=== PATIENT | female | born 1965 | race Caucasian/White ===

== ENCOUNTER 2018-10-31 16:55 | Outpatient (CLI) | payer OTHER ==
--- NOTE | 2018-11-04 15:41 | Mammography Report ---
Reason: SCREENING FOR NAYA SAUCEDOP,BREAST Procedure Date: 10/31/2018 Accession Number: [id number] / [id number] Procedure: SADIE - Screening Mammo w/Blaise CPT Code: FULL RESULT: EXAM: Screening Mammo w/Blaise DATE: 10/31/2018 5:30 PM CLINICAL HISTORY: Screening examination. History of late childbearing. TECHNIQUE: (B) - Bilateral CC, laterally exaggerated CC, MLO views were obtained. COMPARISON: 09/24/2008. PARENCHYMAL PATTERN: (D) - The breast(s) demonstrate(s) heterogeneously dense fibroglandular parenchyma. FINDINGS: There are no suspicious masses, calcifications, or areas of distortion. IMPRESSION: Negative examination. BI-RADS category 1. RECOMMENDATION: (ANNUAL) - Recommend routine annual screening mammography. BI-RADS CATEGORY: (1) - Negative. STANDARD QUALIFYING STATEMENTS: 1. This examination was not reviewed with the aid of Computer-Aided Detection (CAD). 2. A negative or benign imaging report should not preclude biopsy if clinically suspicious findings are present. 3. Dense breasts may obscure an underlying neoplasm. 4. This examination was reviewed with the aid of 3D breast imaging (tomosynthesis).
== END 2018-10-31 16:56 | disposition home or self-care (01) ==
LOC: DI 16:55
PROVIDERS: ATTEND Nurse Practitioner Obstetrics & Gynecology
DX: Z12.31 Encounter for screening mammogram for malignant neoplasm of breast (principal)
CPT/HCPCS: 77063; 77067

== ENCOUNTER 2020-01-29 09:02 | Outpatient (CLI) | payer BC ==
--- NOTE | 2020-01-29 15:16 | XRAY Report ---
PROCEDURE: Knee 3 View RT INDICATIONS: RT KNEE PAIN TECHNIQUE: 3 views of the right knee(s) were acquired. COMPARISON: None. FINDINGS: Bones: No fractures or dislocations. No suspicious bony lesions. Mild medial patellofemoral compart ment osteoarthritis. Soft tissues: No joint effusion. No suspicious soft tissue calcifications. 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 Reviewed by: Brigette Pink MD, PhD on 01/29/2020 3:14 PM PDT Approved by: Brigette Pink MD, PhD on 01/29/2020 3:14 PM PDT Station ID: [id number]
== END 2020-01-29 09:03 | disposition home or self-care (01) ==
LOC: DI.S 09:02
PROVIDERS: ATTEND Naturopath
DX: M17.11 Unilateral primary osteoarthritis, right knee (principal)

== ENCOUNTER 2020-05-18 10:58 | Outpatient (CLI) | payer BC | END 2020-05-18 10:59 | disposition home or self-care (01) | LOC: COV 10:58 | PROVIDERS: ATTEND Family Medicine | DX: M79.10 Myalgia, unspecified site (principal); R07.0 Pain in throat; R11.11 Vomiting without nausea; Z20.822 Contact with and (suspected) exposure to COVID-19 ==

== ENCOUNTER 2023-06-27 14:59 | Outpatient (CLI) | payer BC ==
--- NOTE | 2023-06-27 16:46 | Ultrasound Report ---
PROCEDURE: Pelvic w/Transvaginal INDICATIONS: ABD BLOATING TECHNIQUE: Real-time scanning was performed of the pelvic organs, with image documentation. Additional endovagi nal scanning was necessary due to incomplete visualization of the adnexal and endometrial structures by transabdominal scanning. COMPARISON: None. FINDINGS: Uterus: Uterus is anteverted and normal in size at 5.9 x 2.9 x 3.7 cm. The myometrium is heterogene ous. The endometrium measures 4.4 mm in combined thickness. Simple cyst is noted within the myometr ium adjacent to the endometrium measuring 5 mm. Ovaries: The right ovary measures 1.4 x 2.4 x 1.5 cm, with a calculated ovarian volume of 2.6 cc. T he left ovary measures 2.3 x 0.9 x 1.4 cm, with a calculated ovarian volume of 1.5 cc. The ovaries h ave a normal sonographic appearance. Less than 12 follicles can be seen in each ovary. No adnexal m asses are seen. No cystic lesions measuring greater than 3 cm. Other: No pathologic free abdominal or pelvic fluid. IMPRESSION: 1.No cause for patient's symptoms is identified. 2.There is a 5 mm simple cysts within the myometrium adjacent to the endometrium, nonspecific and lik cynthia of no clinical significance. 3.Ovaries are normal in appearance. Reviewed by: Duglas Ryder MD on 06/27/2023 4:44 PM PST Approved by: Duglas Ryder MD on 06/27/2023 4:44 PM PST Station ID: [id number]
== END 2023-06-27 15:00 | disposition home or self-care (01) ==
LOC: DI 14:59
PROVIDERS: ATTEND Nurse Practitioner
DX: R14.0 Abdominal distension (gaseous) (principal); N85.8 Other specified noninflammatory disorders of uterus